=== PATIENT | male | born 1985 | race Two or more races ===

== ENCOUNTER 2019-10-09 07:00 | Inpatient (IN) | payer OTHER ==
[~2019-10-09] VITALS: Ht 167.6 cm; Wt 93.9 kg
[2019-12-09] MEDS ORDERED: ACETAMINOPHEN325 M1 ORAL (11:23)
[2019-12-09] MEDS ORDERED: ALLEGRA ALLERGY60 M1 PO (11:24)
--- NOTE | 2019-12-09 11:55 | NUR ---
[employer] translation services used to obtained medical history with roto mixer operator: Negin ID# [id number].
[2019-12-11] VITALS (10 sets, daily range): BP systolic 94–140; BP diastolic 50–78
[2019-12-11] MEDS ORDERED: propofoL 1,000mg/100ml IV ONE (07:00)
[2019-12-11] MEDS ORDERED: ceFAZolin sod 2 GM in NS 55 ML IVPB ONE (07:00)
[2019-12-11] MEDS ORDERED: Lacri-Lube Opth Oint 3.5gm ONE (08:41)
[2019-12-11] MEDS ORDERED: Vancomycin 1gm vial IVPB ONE (08:41)
[2019-12-11] MEDS ORDERED: Gelfoam Size TOPIC ONE (08:42)
[2019-12-11] MEDS ORDERED: Bacitracin 50000 Units Vial ONE (08:42)
[2019-12-11] MEDS ORDERED: Thrombin 5000 units TOPIC ONE (08:42)
[2019-12-11] MEDS ORDERED: Ropivacaine 5mg/ml Vial 20ml INJ ONE (08:42)
[2019-12-11] MEDS ORDERED: Midazolam 2mg/2ml Inj ONE (09:42)
[2019-12-11] MEDS ORDERED: fentaNYL 100 mcg/2 mL IV ONE (09:42)
[2019-12-11] MEDS ORDERED: Rocuronium Bromide 100mg/10ml Inj IV ONE (09:48)
[2019-12-11] MEDS ORDERED: Succinylcholine 20mg/ml 10ml vial ONE (09:48)
[2019-12-11] MEDS ORDERED: LR 1000ml 1,000 ML IVLG SCH (10:17)
--- NOTE | 2019-12-11 10:17 | Anethesia Preoperative Eval ---
Anesthesia Pre-op PMH/ROS General Date of Evaluation: December 11, 2019 Time of Evaluation: 10:13 Anesthesiologist: Mary ASA Score: ASA 2 Mallampati Score Class I : Soft palate, uvula, fauces, pillars visible Class II: Soft palate, uvula, fauces visible Class III: Soft palate, base of uvula visible Class IV: Only hard plate visible Mallampati Classification: Class II Surgeon: Eliana Diagnosis: Lumbar rediculopathy Surgical Procedure: Microdiscectomy Anesthesia History: none Social History: smoking Family History: no anesthesia problems Allergies: Coded Allergies: No Known Allergies (Unverified , 12/11/19) Medications: see eMAR Patient NPO?: Yes Past Medical History Cardiovascular: Denies: HTN, CAD, DE, valve dz, arrhythmia, other Pulmonary: Denies: asthma, COPD, VIDAL, other Gastrointestinal/Genitourinary: Reports: GERD - mild; Denies: CRI, ESRD, other Neurologic/Psychiatric: Reports: other - chronic pain; Denies: dementia, CVA, depression/anxiety, TIA Endocrine: Denies: DM, hypothyroidism, steroids, other HEENT: Denies: cataract (L), cataract (R), glaucoma, ANVIK (L), ANVIK (R), other Hematology/Immune: Denies: anemia, DVT, bleeding disorder, other Musculoskeletal/Integumentary: Denies: OA, RA, DJD, DDD, edema, other Other: obesity PMH Narrative: as above PSxH Narrative: None Anesthesia Pre-op Phys. Exam Physician Exam Last Vital Signs Date Time Temp Pulse Resp B/P (MAP) Pulse Ox O2 Delivery O2 Flow Rate FiO2 12/11/19 08:27 Room Air 12/11/19 08:26 97.3 79 20 140/75 (96) 98 Constitutional: NAD Neurologic: CN 2-12 intact Cardiovascular: RRR, no M/R/G Respiratory: CTA Gastrointestinal: S/NT/ND Airway Exam Mallampati Score: Class II MO: full Neck: flexible ROM: full Teeth: intact Dentures: no upper, no lower Anesthesia Pre-op A/P Labs see chart Studies Pre-op Studies: EKG - NSR Risk Assessment & Plan Assessment: ASA 2 Plan: GA with ETT prone position neuromonitoring Status Change Before Surgery: No Pre-Antibiotics Drug: Ancef 2gr Given Within 1 Hr of Incision: Yes Time Given: 10:45 Ramon Mead MD December 11, 2019 10:16
--- NOTE | 2019-12-11 10:27 | Brief Operative Note ---
Immediate Post Operative Note Operative Note Chief Complaint: back pain and radiculopathy Pre-op Diagnosis: L45 and L5S1 herniation Procedure: Left sided microdiscectomy hemilaminotomy of L45 and L5S1 Post-op Diagnosis: same as pre-op Findings: consistent w/pre-op dx studies Surgeon: Eliana Marine Engineering Professor: Claudia Anesthesiologist: NARDA Anesthesia: general Specimen: none Complications: none Condition: stable Fluids: IVF Estimated Blood Loss: minimal Drains: none Implant(s) used?: No Eliu Monroy MD December 11, 2019 10:27
--- NOTE | 2019-12-11 10:27 | Pre-Procedure Note/Attestation ---
Pre-Procedure Note/Attestation Complete Prior to Procedure Planned Procedure: left Procedure Narrative: Left sided microdiscectomy hemilaminotomy of L45 and L5S1 Indications for Procedure Pre-Operative Diagnosis: L45 and L5S1 herniation Attestation I attest that I discussed the nature of the procedure; its benefits; risks and complications; and alternatives (and the risks and benefits of such alternatives ), prior to the procedure, with the patient (or the patient's legal client representative). I attest that, if there was a reasonable possibility of needing a blood transfusion, the patient (or the patient's legal client representative) was given the [facility] standardized written summary, pursuant to the Toni Mike Blood Safety Act ([place] Health and Safety Code # 1645, as amended). I attest that I re-evaluated the patient just prior to the surgery and that there has been no change in the patient's H&P, except as documented below: Eliu Monroy MD December 11, 2019 10:27
[2019-12-11] MEDS ORDERED: Hydromorphone 0.5mg/0.5ml inj IVP PRN (10:30)
[2019-12-11] MEDS ORDERED: Acetaminophen (Non formulary) 100 ML IV ONE (10:30)
[2019-12-11] MEDS ORDERED: Metoclopramide 10mg/2ml Inj IVP PRN ×2 (10:30→15:00)
[2019-12-11] MEDS ORDERED: Meperidine 25mg/0.5ml Inj (FOR RIGORS ONLY) IV PRN (10:30)
[2019-12-11] MEDS ORDERED: Ketorolac 30mg Inj IV PRN (10:30)
[2019-12-11] MEDS ORDERED: DiphenhydrAMINE 50mg/ml Inj IVP PRN (10:30)
[2019-12-11] MEDS ORDERED: HYDROmorphone 1mg/ml Carpuject IVP PRN (10:30)
[2019-12-11] MEDS ORDERED: Naloxone 0.4mg/ml Inj IVP PRN (10:30)
[2019-12-11] MEDS ORDERED: Morphine Sulfate 10mg/ml Inj ONE (11:02)
[2019-12-11] MEDS ORDERED: Neostigmine 1mg/ml 10ml Inj ONE (11:03)
[2019-12-11] MEDS ORDERED: Glycopyrrolate 0.2mg/ml 1ml Vial ONE (11:03)
[2019-12-11] MEDS ORDERED: Sodium Chloride 10ml vial INJ ONE (11:03)
--- NOTE | 2019-12-11 12:52 | Immediate Post-Op Evaluation ---
Immediate Post-Op Evalulation Immediate Post-Op Evalulation Procedure: L4-L5-C1 laminotomy with decompression Date of Evaluation: December 11, 2019 Time of Evaluation: 12:51 IV Fluids: 1400 Blood Products: none Estimated Blood Loss: 300 Urinary Output: none Blood Pressure Systolic: 106 Blood Pressure Diastolic: 58 Pulse Rate: 82 Respiratory Rate: 20 O2 Sat by Pulse Oximetry: 99 Temperature (Fahrenheit): 97.3 Pain Score (1-10): 1 Nausea: No Vomiting: No Complications none Patient Status: reacts, patent, extubated, none Hydration Status: adequate Ramon Mead MD December 11, 2019 12:52
--- NOTE | 2019-12-11 12:55 | Diagnostic Imaging Report ---
XRAY L Spine 1V CLINICAL HISTORY: Back pain. COMPARISON: None FINDINGS: Fluoroscopy independent procedure performed for lumbar localization. 4 seconds of fluoroscopy time utilized by the ordering physician. Total cumulative dose is 1.79 mGy and 0.17075 Gy.cm2. Single digital spot image obtained. IMPRESSION: FLUOROSCOPY GUIDED PROCEDURE.
--- NOTE | 2019-12-11 14:30 | NUR ---
P.T NOTE: P.T EVALUATION COMPLETED. EDUCATION RE: SPINAL PRECAUTIONS AND PROPER BODY MECHANICS PROVIDED TO PATIENT. PATIENT ABLE TO VERBALIZE UNDERSTANDING AND WAS ABLE TO RETURN GOOD RETURN DEMONSTRATION DURING ADL/FUNCTIONAL MOBILITIES. PATIENT IS CURRENTLY FUNCTIONING INDEPENDENTLY AND SAFELY WITHIN THE SURGICAL GUIDELINES. NO FURTHER P.T FOLLOW UP NEEDED. [facility]. THANK YOU FOR THIS REFERRAL.
--- NOTE | 2019-12-11 14:53 | NUR ---
NURSE NOTES: Received patient from recovery,patient awake and alert and oriented.Respirations unlabored.Surgical dressing to the lower back in place,ice pack applied to surgical site.Patient able to move lower extremities.IV in right hand in place. SCDs to legs. Call light within reach
[2019-12-11] MEDS ORDERED: Morphine Sulfate 4mg/ml Inj (IV USE ONLY) IV PRN ×2 (15:00)
[2019-12-11] MEDS ORDERED: Chloraseptic Spray 20mL Bottle ORAL PRN (15:00)
[2019-12-11] MEDS ORDERED: Milk of Magnesia 30ml Ud ORAL PRN (15:00)
[2019-12-11] MEDS ORDERED: Morphine Sulfate 2mg/ml Inj(IV/IM USE ONLY) IV PRN (15:00)
[2019-12-11] MEDS ORDERED: HYDROcodone/Acetamin 7.5/325 tab ORAL PRN ×2 (15:00)
[2019-12-11] MEDS ORDERED: HYDROcodone/Acetamin 5/325 tab ORAL PRN (15:00)
--- NOTE | 2019-12-11 15:35 | 48 Hour Post Anesthesia Eval ---
Post Anesthesia Evaluation Procedure: L4-L5-C1 laminotomy with decompression Date of Evaluation: December 11, 2019 Time of Evaluation: 15:34 Blood Pressure Systolic: 118 0: 76 Pulse Rate: 68 Respiratory Rate: 20 Temperature (Fahrenheit): 97.6 O2 Sat by Pulse Oximetry: 99 Airway: patent Nausea: No Vomiting: No Pain Intensity: 2 Hydration Status: adequate Cardiopulmonary Status: stable Mental Status/LOC: patient returned to baseline Follow-up Care/Observations: n/a Post-Anesthesia Complications: none Follow-up care needed: ready to discharge Ramon Mead MD December 11, 2019 15:35
[2019-12-11] MEDS ORDERED: NS w/KCl 20mEq 1000ml 1,000 ML IV SCH (16:00)
--- NOTE | 2019-12-11 16:41 | NUR ---
CASE MANAGEMENT:INITIAL REVIEW 34 YR OLD DIRECT ADMIT FOR SCHEDULED SURGERY SI;BACK PAIN AND RADICULOPATHY. L45 AND L5S1 HERNIATION 97.3 80 20 118/74 96% 3L NC IS;SURGERY: Left sided microdiscectomy hemilaminotomy of L45 and L5S1 CEFAZOLIN IV Q8 HRS DECADRON IV Q6 HRS KCL IV @ 100 ML/HR COMPAZINE IV Q6 HRS PRN ADMITTED TO MED SURG @ 1030 ON 12/11/19 MED SURG STATUS DCP;FROM HOME
[2019-12-11] MEDS ORDERED: Dexamethasone 4mg/ml vial IVP SCH (18:00)
[2019-12-11] MEDS ORDERED: ceFAZolin sod 1 GM in D5W 55 ML IV SCH (18:00)
[2019-12-11] MEDS ORDERED: Docusate 100mg cap ORAL SCH (18:00)
--- NOTE | 2019-12-11 19:44 | NUR ---
NURSE NOTES: Patient tolerated diet,no complaint of nausea,patient able to void,dressing in place.No complaint of numbness or tingling.patient was seen by physical Therapist today.DR Monroy was here at 1510 to see patient ,patient can be discharge today.Discharge instructions given, discharge prescription given,patient has his CD and belongings. Cell phone .IV removed,ID hospital band removed.patient accompany outside ,patient ride is here to take patient home.
--- NOTE | 2019-12-13 23:06 | Discharge Summary ---
Discharge Summary Discharge Summary _ DATE OF ADMISSION: 12/11/2019 DATE OF DISCHARGE: 12/11/2019 SURGEON: Dr. Eliu Monroy BRIEF HOSPITAL COURSE: Patient is a 34-year-old male, who was diagnosed with L4-L5 and L5-S1 herniation was admitted and underwent left-sided microdiscectomy, hemilaminotomy of L4-L5 and L5-S1. He tolerated procedure well. Surgery was uneventful. Post-operatively, patient was admitted for post-op care. He was placed on SCDs for DVT prophylaxis and was encouraged use of incentive spirometer. Patient was given pain management. He was seen by PT. Diet was advanced. Incision was clean, dry and intact. Patient was ambulating well with good pain control and was tolerating diet. Patient was eventually cleared for discharge home. FINAL DIAGNOSES: L4-L5 and L5-S1 herniation status post left-sided microdiscectomy, hemilaminotomy, L4-L5 and L5-S1. (Refer to Operative Report) DISCHARGE DISPOSITION: Patient was discharged home. DISCHARGE MEDICATIONS: Refer to Medication Reconciliation Sheet. DISCHARGE INSTRUCTIONS: Post-op instructions given. Follow-up in a week. I have been assigned to complete a DC summary on this account, I was not involved with the patient's management.--SHANTA Whitmore Jacqueline Robles NP December 13, 2019 23:06
--- NOTE | 2019-12-15 01:30 | Discharge Summary ---
DATE OF ADMISSION: 12/11/2019 DATE OF DISCHARGE: 12/11/2019 DATE OF ADMISSION: 12/11/2019 DATE OF DISCHARGE: 12/11/2019 PROCEDURE PERFORMED DURING ADMISSION: Lumbar microdiscectomy, L4-L5 and L5-S1. REASON FOR ADMISSION: Lumbar herniated nucleus pulposus. HOSPITAL COURSE/TREATMENT RENDERED: DISCHARGE PHYSICAL EXAMINATION: 1. The patient was ambulating with and without the assistance of Physical Therapy. 2. Prior to discharge home, incision was clean and dry with minimal swelling. 3. Follows commands. 4. Alert and oriented. 5. Arora discontinued, voiding. 6. Incentive spirometer at bedside. 7. IVF hep-locked. MOTOR: Demonstrates expected postoperative bulk and tone. Moves biceps, triceps, and deltoid musculature on command. Moves hip flexors, quadriceps, tibialis anterior, EHL, gastrocsoleus musculature on command as well. TREATMENT RENDERED: 1. Daily nursing care. 2. Physical therapy. 3. Occupational therapy. 4. Intravenous medications. 5. Oral medications. 6. Daily postoperative examinations by Spine Surgery team. CONDITION OF PATIENT ON DISCHARGE: The condition on discharge was stable for discharge to home. DISCHARGE INSTRUCTIONS: Our specific instructions relating to physical activity, medications, diet, and followup care are detailed in our standard operative folder and were given to this patient prior to surgery. We will however summarize these briefly as stated below. Regarding physical activity, we would like the patient to limit his flexion, extension, and rotation. We also require a limitation on his bending, lifting, and twisting. All medication has been called in prior to surgery to his pharmacy of choice. He can resume his regular diet once tolerated. We would like him to shower and limit soaking the wound in a tub/Jacuzzi/the ocean for a period of one month or until the incision is completely healed. We will have him follow up in our office in three weeks' time for his regularly scheduled appointment. They understand to call our office tomorrow to schedule the time for his three-week followup appointment. The patient will notify us should they experience any increase in the severity of pain, redness, swelling, or drainage from his incision. Eliu Monroy M.D. DR: Nicolette JOB#: [id number] CC:
--- NOTE | 2019-12-15 01:45 | Discharge Summary ---
DATE OF ADMISSION: 12/11/2019 DATE OF DISCHARGE: 12/11/2019 PROCEDURE PERFORMED DURING ADMISSION: Lumbar microdiscectomy, L4-L5 and L5-S1. REASON FOR ADMISSION: Lumbar herniated nucleus pulposus. HOSPITAL COURSE/TREATMENT RENDERED: DISCHARGE PHYSICAL EXAMINATION: 1. The patient was ambulating with and without the assistance of Physical Therapy. 2. Prior to discharge home, incision was clean and dry with minimal swelling. 3. Follows commands. 4. Alert and oriented. 5. Arora discontinued, voiding. 6. Incentive spirometer at bedside. 7. IVF hep-locked. MOTOR: Demonstrates expected postoperative bulk and tone. Moves biceps, triceps, and deltoid musculature on command. Moves hip flexors, quadriceps, tibialis anterior, EHL, gastrocsoleus musculature on command as well. TREATMENT RENDERED: 1. Daily nursing care. 2. Physical therapy. 3. Occupational therapy. 4. Intravenous medications. 5. Oral medications. 6. Daily postoperative examinations by Spine Surgery team. CONDITION OF PATIENT ON DISCHARGE: The condition on discharge was stable for discharge to home. DISCHARGE STATUS: Home. DISCHARGE INSTRUCTIONS: Our specific instructions relating to physical activity, medications, diet, and followup care are detailed in our standard operative folder and were given to this patient prior to surgery. We will however summarize these briefly as stated below. Regarding physical activity, we would like the patient to limit his flexion, extension, and rotation. We also require a limitation on his bending, lifting, and twisting. All medication has been called in prior to surgery to his pharmacy of choice. He can resume his regular diet once tolerated. We would like him to shower and limit soaking the wound in a tub/Jacuzzi/the ocean for a period of one month or until the incision is completely healed. We will have him follow up in our office in three weeks' time for his regularly scheduled appointment. They understand to call our office tomorrow to schedule the time for his three-week followup appointment. The patient will notify us should they experience any increase in the severity of pain, redness, swelling, or drainage from his incision. Eliu Monroy M.D. DR: Nicolette JOB#: [id number] CC:
--- NOTE | 2019-12-15 02:30 | Operative Note - Dictated ---
DATE OF OPERATION: 12/11/2019 SURGEON: Eliu Monroy MD, Orthopaedic Spine Surgeon. PRESALES CONSULTANT SURGEON: JAVED Carrillo. ANESTHESIA: General endotracheal anesthesia. PREOPERATIVE DIAGNOSES: 1. Intractable back pain. 2. Intractable leg pain. 3. Worsening radiculopathy. 4. Weakness. 5. Herniated nucleus pulposus, L4-L5 and L5-S1 herniation. 6. Neural foraminal stenosis, L4-L5 and L5-S1. POSTOPERATIVE DIAGNOSES: 1. Intractable back pain. 2. Intractable leg pain. 3. Worsening radiculopathy. 4. Weakness. 5. Herniated nucleus pulposus, L4-L5 and L5-S1 herniation. 6. Neural foraminal stenosis, L4-L5 and L5-S1. PROCEDURES PERFORMED: 1. Left-sided L4-L5 and L5-S1 microdiscectomy. 2. L4-L5 and L5-S1 hemilaminotomy, foraminotomy, and medial facetectomy. 3. L4-L5 and L5-S1 neural foraminotomy through a transpedicular intraforaminal approach. 4. Use of intraoperative microscope. 5. Supervision and interpretation of intraoperative fluoroscopy. 6. Supervision and interpretation of somatosensory-evoked potential and free-running EMG monitoring. ESTIMATED BLOOD LOSS: Less than 100 mL. COMPLICATIONS: None. INDICATIONS FOR THE PROCEDURE: The patient presents for intractable back pain and radiculopathy. The patient tried and failed a prolonged course of conservative management, including but not limited to chiropractic therapy, physical therapy, nonsteroidal anti-inflammatory drugs, medication, ice packs as well as epidural injection. Despite these therapies, the patient still developed recalcitrant pain and elected for definitive management in the form of left-sided L4-L5 and L5-S1 microdiscectomy; L4-L5 and L5-S1 hemilaminotomy, foraminotomy, and medial facetectomy; L4-L5 and L5-S1 neural foraminotomy through a transpedicular intraforaminal approach. CONSENT: We had a long discussion with the patient regarding definitive surgical treatment options. The patient's MRI demonstrated herniated nucleus pulposus at L4-L5 and L5-S1 with herniation and neural foraminal stenosis at L4-L5 and L5-S1, and as a result, I felt the patient would benefit from the discectomy as well as neural foraminotomy at this level. We had a long discussion with the patient regarding the risks, alternatives, and benefits of surgery. Our description of the risks included a discussion in person as well as a signed consent, which detailed all pertinent risks and the procedure itself. Briefly, our discussion included but was not limited to infection, bleeding, pseudarthrosis, spinal cord injury, neurovascular injury, dural tear, CSF leak, neuropathy, paralysis, permanent weakness/drop foot, paresthesias blindness, palsy, and weakness. The patient understood there may be a need for revision surgery or additional procedures. Approach-related complications including dysphonia, dysphagia, blindness, permanent vocal cord and neural injury, hematoma, swallowing and breathing difficulty. Medical complications including liver, kidney, shock, and cardiopulmonary failure. Anesthesia complications including , swelling, damage to the musculature, larynx (voice injury or loss), esophagus (throat), trachea, blood vessels and muscles (muscular sprain) and lungs (pneumothorax) during this surgical procedure. Injury to deeper structures may be temporary or permanent. The patient understood these and elected to proceed. A written and verbal consent was given. We discussed the pros and cons of all the alternatives. We discussed the uncertainties associated with the decision. Afterward, I assessed the patient's understanding and explored his preferences. All questions were answered and no guarantees were given. Medical clearance was obtained prior to surgery. INTRAOPERATIVE FINDINGS: There was a significant amount of bleeding as though this patient may have been on some type of anti-inflammatory beforehand, although not. There was a large disc herniation noted. This was encountered through a tear in the posterior longitudinal ligament encountered on the left neural foramina at L4-L5 and again at L5-S1. At L4-L5, the tear was almost vertical. At L5-S1, the tear was 20 degrees cephalad to caudad. This was probed with a Microsect 3-B and removal of the frayed edges of the tear led us to a large nuclear fragment, which was encroaching the thecal sac and spinal cord along the inside of the left neural foramina, both at L4-L5 and L5-S1. The disc at both levels was spongy and soft. It was not calcified or granular as can be seen in most degenerative processes traumatic disc herniation present at L4-L5 and L5-S1. DESCRIPTION OF PROCEDURE: Under the benefit of general endotracheal anesthesia and with the assistance of the entire operative team, the patient was moved [facility] the operative table in the prone position on a Reginald frame. The head was secured and positioned appropriately. Bilateral arms were secured with Gel Pads and foam and all bony prominences were padded. The bilateral lower extremity SCD and BLAYNE hose were placed for DVT prophylaxis. A surgical timeout was called, which corroborated our planned procedure. Preoperative antibiotics were administered within 30 minutes of the incision for prophylaxis. Decadron was given for preoperative steroids. Using lateral radiography, the operative levels were delineated. An incision was marked based on our interpretation of lateral radiography and afterward the body was prepped and draped in the usual sterile manner. The family was notified that we were ready to commence surgery and were called in the waiting room hourly for updates. An incision was based on our lateral fluoroscopic image to center the incision at the L4-L5 and L5-S1 interspace. The wound was prepped and draped in the usual sterile fashion. Using a scalpel, a midline incision was taken down through the skin and subcutaneous tissues until the overlying hemilaminae of L4-L5 and L5-S1 were visualized. Next, using meticulous hemostasis, hemilamotomies were dissected and retractors were placed. Using a LapSpace dental, we confirmed placement at the L4-L5 and L5-S1 interspace. We next turned our attention to our decompression. A standard hemilaminotomy, foraminotomy, and medial facetectomy was performed at each level in standard fashion using a Midas-Miguel type AM8 drill bit, straight and angled curettage, and Kerrison 4 rongeurs until the lateral thecal sac margin and traversing nerve root was visualized. All remainders of the ligamentum flavum and lateral bony margins were resected in total with angled curettage and Kerrison 4 rongeurs until the lateral thecal sac margin and traversing nerve root was visualized and decompressed. We next turned our attention toward our L4-L5 and L5-S1 microdiscectomy on the left side. A Premont 4 was used to gently mobilize the thecal sac medially and this was held retracted with a bayonetted nerve root retractor. It was at this point that we noted a large broad-based disc protrusion with encroachment dorsally on the thecal sac and neural foraminal contents. A bayonet and nerve root retractor was then placed carefully to retract the thecal sac and a discectomy was performed using a combination of a long-handled 15 blade scalpel, downgoing and straight pituitaries, and downgoing curettage. Afterward, the disc space was irrigated twice with 20 mL of antibiotic-impregnated saline. All loose and free-floating disc fragments were carefully resected with a narrow pituitary. Having been satisfied with our decompression after our discectomy of all neural elements, we next turned our attention to our neural foraminoplasty/foraminotomy. This was performed through a transpedicular intraforaminal approach using an access probe followed by a neuro-check device, which confirmed ventral placement of our nerve root. Once we confirmed we were safe, we next turned our attention towards placement of our size 10 file under direct microscopic visualization and under lateral fluoroscopy. Using pre- and post-reciprocation imaging, we were able to visualize our direct decompression given the reciprocation allowed for re-creation of the neural foraminal arch at L4-L5 and L5-S1. Afterwards, hemostasis was obtained with 60 mL of antibiotic-impregnated saline followed by FloSeal and Gelfoam. After sponge and needle count were found to be correct, we next turned our attention to closure. Closure consisted of 1-0 Vicryl in standard interrupted fashion. Zosyn was placed deep to the fascia and superficial to the fascia for antibiotic prophylaxis. Skin closure was performed with 2-0 Vicryl in interrupted fashion followed by a running Monocryl for the skin. Final dressings consisted of Dermabond for the superficial skin, Telfa, and Tegaderm. The patient tolerated the procedure well. The patient was extubated after the conclusion of surgery without incident. We discussed the findings of the surgery with the family upon completion of the case. At this point, the patient will be transferred to the spine floor for further observation. Eliu Monroy M.D. DR: Nicolette JOB#: [id number] CC:
== END 2019-12-11 20:00 | disposition home or self-care (01) | DRG 520 ==
LOC: SDSOVERFLO 12-11 07:50 → 3E 12-11 14:22
PROC: 0SB20ZZ Excision of Lumbar Vertebral Disc, Open Approach (ICD-10-PCS; principal; 2019-12-11 10:00)
PROC: 01NR0ZZ Release Sacral Nerve, Open Approach (ICD-10-PCS; principal; 2019-12-11 10:00)
PROC: 01NB0ZZ Release Lumbar Nerve, Open Approach (ICD-10-PCS; principal; 2019-12-11 10:00)
PROC: 0SB40ZZ Excision of Lumbosacral Disc, Open Approach (ICD-10-PCS; principal; 2019-12-11 10:00)
DX: M51.16 Intervertebral disc disorders with radiculopathy, lumbar region (principal); M51.17 Intervertebral disc disorders with radiculopathy, lumbosacral region; M48.061 Spinal stenosis, lumbar region without neurogenic claudication; M48.07 Spinal stenosis, lumbosacral region; V89.2XXS Person injured in unspecified motor-vehicle accident, traffic, sequela; Z87.891 Personal history of nicotine dependence
CPT/HCPCS: 36415; 72020; 76000; 86850; 86900; 86901; 87081; J2180; J2250; J2710; J2795